=== PATIENT | female | born 1955 | race Caucasian/White ===

== ENCOUNTER 2016-11-04 13:31 | Emergency (ER) | payer MEDICAID ==
[2016-11-04 13:52] VITALS: BP 148/75; PULSE 79; RESP 16; TEMP 98.8; O2SAT 92
[2016-11-04] MEDS ORDERED: IBUPROFEN 800 MG TAB PO ONE (13:54)
[2016-11-04] MEDS ORDERED: AMOXICILLIN/CLAVULANATE POT 875/125 MG TAB PO ONE (13:54)
[2016-11-04] MEDS ORDERED: IBUPROFEN 200 MG TAB PO ONE (14:01)
--- NOTE | 2016-11-04 14:03 | EDPHY ---
H & P Time Seen by Provider: 11/04/16 13:43 HPI/ROS: HPI Sinus pressure. 61-year-old female by private vehicle. She complains of right-sided maxillary sinus pressure and discomfort which she 1st noticed last Friday. She reports that has been progressing over since that time. No facial swelling. No fever. She describes it as radiating up into the lateral aspect of her right upper nasal bridge area as well as her right upper jaw and teeth. She has had sinusitis in the past and previous sinus surgery. This is similar to her previous episodes of sinusitis. Her sinus surgery was years ago. She has not had a fever. She is asking for an antibiotic for treatment. ROS: Constitutional: No fever, no chills. No weakness. Eyes: No discharge. No changes in vision. ENT: No sore throat. No nasal congestion or rhinorrhea. As above. Respiratory: No cough. No shortness of breath. Cardiac: No chest pain, no palpitations. Gastrointestinal: No abdominal pain, no vomiting, no diarrhea. Musculoskeletal: No back pain. No neck pain. No myalgias or arthralgias. Skin: No rashes. Neurological: No headache. No focal weakness or altered sensation. Past medical history: Degenerative disc disease, chronic pain, fibromyalgia, thoracic outlet syndrome, as above. [facility]. Social history: Here by herself. No alcohol. Physical Exam: General Appearance: Alert, no distress. This patient is responding to questions appropriately and in full sentences. This patient appears well- hydrated and well-nourished. Eyes: Pupils equal and round no pallor or injection. No lid edema, erythema or injection. ENT, Mouth: Mucous membranes are moist. The pharyngeal tissues are unremarkable. No edema or swelling. No asymmetry suggestive of abscess. No erythema or exudates. Tenderness on palpation over the right maxillary sinus. No associated soft tissue swelling, erythema or warmth noted. No periorbital edema. Neurological: Motor sensory function is grossly intact. Cranial nerves are normal. Gait is normal. Skin: Warm and dry, no rashes. Musculoskeletal: Neck is supple and nontender. No cervical lymphadenopathy. Extremities are symmetrical. All joints range without pain or impingement. Psychiatric: No agitation. No depression. Database: EKG: Imaging: Procedures: Emergency department course: The patient is on chronic narcotic pain medication. She was given 600 mg of ibuprofen. She is not asking for anything stronger. She was given 875 mg of Augmentin. Plan will be to prescribe Augmentin, 875 mg twice daily for the next 7 days. She is then to follow up with her primary care physician for re- evaluation in 2 days. She does not appear toxic. Her vital signs have been reviewed and are normal. She is afebrile. She feels comfortable going home and I feel she is safe for discharge. Return to emergency department precautions were thoroughly reviewed with her. All of her questions were answered. She was discharged from the emergency department in good condition. Differential Diagnosis: The differential diagnosis on this patient includes but is not limited to maxillary sinusitis. Facial fracture, acute dental infection, retropharyngeal abscess, peritonsillar abscess, subarachnoid hemorrhage unlikely. This represents a partial list of diagnoses considered. These considerations are based on history, physical exam, past history, reassessment and diagnostic testing. Constitutional: Initial Vital Signs Temperature (C) 37.1 C 11/04/16 13:40 Heart Rate 79 11/04/16 13:40 Respiratory Rate 16 11/04/16 13:40 Blood Pressure 148/75 H 11/04/16 13:40 O2 Sat (%) 92 11/04/16 13:40 O2 Delivery Mode Room Air Allergies/Adverse Reactions: meperidine HCl [From Demerol] Allergy (Intermediate, Verified 11/04/16 13:46) rash,hives generic drugs Allergy (Severe, Uncoded 11/04/16 13:46) hives,anxiety Home Medications: Medication Instructions Recorded Bimatoprost 0.03% [LUMIGAN 0.03% 0 drops EACHEYE HS 11/18/11 (RX)] Clonazepam 11/18/11 Hydrocodone/APAP 5/325 [[place] 11/18/11 5/325 (*)] Oxycodone HCl/Acetaminophen 11/18/11 [Oxycodone-Acetaminophen 5-325] Amoxicillin/Clavulanate Pot 875 mg PO BID 8 Days 11/04/16 [Augmentin 875 mg tab] Departure - Departure Disposition: Home, Routine, Self-Care Clinical Impression: Sinusitis Condition: Good Instructions: Sinusitis (ED) Additional Instructions: Read and follow provided instructions. Follow-up with your primary care physician in 2 days for re-evaluation. Take medication as prescribed through entire course of treatment. Ibuprofen dosin mg every 6 hours with meals for the next 3 days only. Return to the emergency department for worsening pain, facial swelling, facial discoloration, fever, worsening headache or other serious concerns. Referrals: [facility],. [Primary Care Provider] - As per Instructions Prescriptions: Amoxicillin/Clavulanate Pot [Augmentin 875 mg tab] 875 mg PO BID 8 Days
== END 2016-11-04 14:06 | disposition home or self-care (01) ==
LOC: CED 13:31
DX: J32.9 Chronic sinusitis, unspecified (principal)

== ENCOUNTER 2016-12-26 12:34 | Emergency (ER) | payer MEDICAID ==
[2016-12-26 13:01] VITALS: PULSE 70; RESP 16; TEMP 98.8; O2SAT 94
--- NOTE | 2016-12-26 13:15 | EDPHY ---
H & P Time Seen by Provider: 12/26/16 12:41 HPI/ROS: HPI Tenderness under right breast. 61-year-old female by private vehicle with her friend. She has a history of a small lump underneath the right breast, right at the medullary fold midline to the breast. She reports that she noticed it about 3 years ago. She reports that it has periodically changed in size over the years sometimes getting smaller sometimes getting larger. She reports that she noticed a blackhead on it about a year ago squeezed it and some purulent like material came out of it. She has seen her primary care physician several times for it. She was put on antibiotic once as treatment. There was no significant change. She was told it was a pimple by her primary care physician. She reports that over the last week it has gotten slightly bigger and a little more uncomfortable. She reports this is nothing unusual though that she has not experienced with in the past. She denies fever. No history of trauma. She has no history of breast cancer. ROS: Constitutional: No fever, no chills. No weakness. Respiratory: No cough. No shortness of breath. Cardiac: No chest pain, no palpitations. Musculoskeletal: No back pain. No neck pain. No myalgias or arthralgias. Skin: No rashes. As above. Neurological: No headache. No focal weakness or altered sensation. Past medical history: Chronic pain, fibromyalgia, osteoarthritis, thoracic outlet syndrome, degenerative disc disease, partial hysterectomy. Social history: Here with her friend. No alcohol. Nonsmoker. Physical Exam: General Appearance: Alert, no distress. This patient is responding to questions appropriately and in full sentences. This patient appears well- hydrated and well-nourished. Eyes: Pupils equal and round no pallor or injection. No lid edema, erythema or injection. Chest wall and right breast examination: Small lump, about the size of a nickel to a quarter, mid clavicular line right at the mamillary fold, has the consistency of a lipoma verses a sebaceous cyst. Mild tenderness on palpation over it. No fluctuance, associated erythema or edema noted. Neurological: Motor sensory function is grossly intact. Cranial nerves are normal. Gait is normal. Skin: Warm and dry, no rashes. Musculoskeletal: Neck is supple and nontender. Extremities are symmetrical. All joints range without pain or impingement. Psychiatric: No agitation. No depression. Database: EKG: Imaging: Procedures: Emergency department course: After my evaluation, I discussed the differential diagnosis. I explained that it is likely a recurring sebaceous cyst or lipoma. I recommended she see a general surgeon who can marsupialize it verses remove it and send a biopsy specimen for pathology report if needed. There is no fluctuance. No abscess requiring incision and drainage. There is no surrounding erythema. I explained to her that antibiotics were not indicated at this time. She is in agreement to follow up with General surgery for re-evaluation. Return to emergency department precautions were discussed. All of her questions were answered. She was discharged in good condition. Differential Diagnosis: The differential diagnosis on this patient includes but is not limited to sebaceous cyst, lipoma. Malignancy, abscess, foreign body unlikely. This represents a partial list of diagnoses considered. These considerations are based on history, physical exam, past history, reassessment and diagnostic testing. Smoking Status: Heavy smoker Constitutional: Initial Vital Signs Temperature (C) 37.1 C 12/26/16 12:58 Heart Rate 70 12/26/16 12:58 Respiratory Rate 16 12/26/16 12:58 Blood Pressure 144/89 H 12/26/16 12:58 O2 Sat (%) 94 12/26/16 12:58 O2 Delivery Mode Room Air Allergies/Adverse Reactions: meperidine HCl [From Demerol] Allergy (Intermediate, Verified 12/26/16 12:56) rash,hives generic drugs Allergy (Severe, Uncoded 12/26/16 12:56) hives,anxiety Home Medications: Medication Instructions Recorded Bimatoprost 0.03% [LUMIGAN 0.03% 0 drops EACHEYE HS 11/18/11 (RX)] Clonazepam 11/18/11 Hydrocodone/APAP 5/325 [[place] 11/18/11 5/325 (*)] Oxycodone HCl/Acetaminophen 11/18/11 [Oxycodone-Acetaminophen 5-325] Departure - Departure Disposition: Home, Routine, Self-Care Clinical Impression: Sebaceous cyst of breast, Possible lipoma Condition: Good Instructions: Cyst (ED) Additional Instructions: Read and follow provided instructions. Ibuprofen dosin mg every 6 hours with meals for the next 3 days only. Take only as needed for pain Follow-up with Dr. Brad Simmons or Dr. Watkins his partner in 2-3 days for re- evaluation and further management. Call their office for appointment time this afternoon. Return to the emergency department for worsening pain, swelling, redness, fever or other serious concerns. Referrals: Wale Watkins MD [Medical Doctor] - As per Instructions Brad Simmons MD [Medical Doctor] - As per Instructions
[2016-12-26 13:31] VITALS: BP 130/70
== END 2016-12-26 13:25 | disposition home or self-care (01) ==
LOC: CED 12:34
DX: N60.81 Other benign mammary dysplasias of right breast (principal); F17.200 Nicotine dependence, unspecified, uncomplicated

== ENCOUNTER 2016-12-31 14:06 | Emergency (ER) | payer MEDICAID ==
[2016-12-31 14:27] VITALS: BP 139/69; PULSE 60; RESP 16; TEMP 98.4; O2SAT 94
--- NOTE | 2016-12-31 15:15 | EDPHY ---
H & P Time Seen by Provider: 12/31/16 14:51 HPI/ROS: This patient returns for recheck of her right breast-pain, swelling and redness at the mammary fold. She was seen here by Dr. Palacios on 12/26 2016 with some discomfort to longstanding lump in the area with no erythema at that time. She has secured an appointment to see Dr. lucero in [place]-general surgeon 1 week from today in consult regarding this but in the interim she developed redness and increasing discomfort along with subjective low-grade fevers. She reports partial relief from analgesics with no other exacerbating factors. ROS: Constitutional: No significant fatigue. HEENT: No complaints Pulmonary: No complaints Cardiovascular: No lightheadedness GI: No nausea or vomiting 7 point ROS is otherwise negative Smoking Status: Heavy smoker Physical Exam: Physical Exam Vital signs are normal. General: No acute distress Eyes: Pupils equal and react to light. Extraocular motions are intact. Lungs: No respiratory distress. Cardiac: Brisk capillary refill is intact throughout. Breast exam performed with her director of product management-female in the room: Patient has an area of erythema and [place] edema, warmth to touch 3 x 2 cm at the mammary fold under the right breast mid clavicular line with no fluctuance at this time. The rest of her breast exam is benign with no nipple discharge or other areas of swelling appreciated. Skin: No rash or pallor. See breast exam above Neuro: Alert and oriented x3 with no sensorimotor deficits. Initial differential diagnosis: Lipoma with overlying cellulitis, deep sebaceous cyst with associated cellulitis, breast CA Constitutional: Initial Vital Signs Temperature (C) 36.9 C 12/31/16 14:23 Heart Rate 60 12/31/16 14:23 Respiratory Rate 16 12/31/16 14:23 Blood Pressure 139/69 H 12/31/16 14:23 O2 Sat (%) 94 12/31/16 14:23 O2 Delivery Mode Room Air Allergies/Adverse Reactions: meperidine HCl [From Demerol] Allergy (Intermediate, Verified 12/31/16 14:27) rash,hives generic drugs Allergy (Severe, Uncoded 12/31/16 14:27) hives,anxiety Home Medications: Medication Instructions Recorded Bimatoprost 0.03% [LUMIGAN 0.03% 0 drops EACHEYE HS 11/18/11 (RX)] Clonazepam 11/18/11 Hydrocodone/APAP 5/325 [[place] 11/18/11 5/325 (*)] Oxycodone HCl/Acetaminophen 11/18/11 [Oxycodone-Acetaminophen 5-325] Cephalexin [Keflex (*)] 500 mg PO QID #40 cap 12/31/16 MDM/Departure - [facility] ED Course/Re-evaluation: Discussion: At this time I do not appreciate any fluctuance to this area and I think she is best served by a course of antibiotics. She will follow up in 1 week with the general surgeon for recheck of the area of swelling. I counseled her regarding this. - Depart Disposition: Home, Routine, Self-Care Clinical Impression: Cellulitis of breast Condition: Good Instructions: Cellulitis (ED) Additional Instructions: Diagnosis: Breast cellulitis Plan: Warm packs 3 times a day or more 20 minutes at a time or so Keflex antibiotic Probiotic or yogurt while on Keflex to prevent diarrhea. Follow-up next Friday with the general surgeon for a recheck. Return for any significant worsening despite the treatment plan Referrals: Silvia Cabral PA [Primary Care Provider] - As per Instructions Wale Watkins MD [Medical Doctor] - As per Instructions
== END 2016-12-31 15:00 | disposition home or self-care (01) ==
LOC: CED 14:06
DX: N61.1 Abscess of the breast and nipple (principal); F17.200 Nicotine dependence, unspecified, uncomplicated

== ENCOUNTER → 2016-12-31 | Outpatient (CLI) | payer MEDICAID | LOC: CIMAGING 10:21 | PROVIDERS: ATTEND Clinical Nurse Specialist | DX: M25.551 Pain in right hip (principal); M54.5 Low back pain | CPT/HCPCS: 72114-PO; 73502-PO ==

== ENCOUNTER → 2017-06-03 | Outpatient (CLI) | payer MEDICAID | LOC: FIMAGING 10:32 | PROVIDERS: ATTEND Physician Assistant | DX: R10.9 Unspecified abdominal pain (principal); K40.90 Unilateral inguinal hernia, without obstruction or gangrene, not specified as recurrent ==

== ENCOUNTER 2017-07-02 05:48 | Day surgery (SDC) | payer MEDICAID ==
[2017-07-02] MEDS ORDERED: LR 1,000 ML IV ONE (06:11)
[2017-07-02] MEDS ORDERED: LIDOCAINE 1% 300 MG/30 ML SDV ONE (06:37)
[2017-07-02] MEDS ORDERED: BUPIVACAINE 0.5% 30 ML SDV ONE (06:38)
[2017-07-02] MEDS ORDERED: MIDAZOLAM 2 MG/2 ML VIAL IVP ONE (07:03)
--- NOTE | 2017-07-02 07:06 | PDANEPAE ---
ANE History of Present Illness r breast mass ANE Past Medical History - Cardiovascular History Hx Hypertension: No Hx Arrhythmias: No Hx Chest Pain: No Hx Coronary Artery / Peripheral Vascular Disease: No Hx CHF / Valvular Disease: No Hx Palpitations: No - Pulmonary History Hx COPD: No Hx Asthma/Reactive Airway Disease: No Hx Recent Upper Respiratory Infection: No Hx Oxygen in Use at Home: No Hx Sleep Apnea: No Sleep Apnea Screening Result - Last Documented: Negative Pulmonary History Comment: WORKING ON DECREASING SMOKING. 15 PLUS YRS. SINUS INFECTION 04/2017 - Neurologic History Hx Cerebrovascular Accident: No Hx Seizures: No Hx Dementia: No - Endocrine History Hx Diabetes: No - Renal History Hx Renal Disorders: No - Liver History Hx Hepatic Disorders: No - Neurological & Psychiatric Hx Hx Neurological and Psychiatric Disorders: Yes Neurological / Psychiatric History Comment: PTSD. PARANOID PERSONALITY. SOMATZATION DISORDER. ANXIETY AND DEPRESSION - Cancer History Hx Cancer: No - Congenital Disorder History Hx Congenital Disorders: No - GI History Hx Gastrointestinal Disorders: Yes Gastrointestinal History Comment: IBS. DIVERTICULOSIS. DYSPESIA. CONSTIPATION RELATED TO NARCOTICS. HIATAL HERNIA. HEARTBURN - Other Health History Other Health History: GLAUCOMA. CERVICAL RADICULOPATHY. TMJ - Chronic Pain History Chronic Pain: Yes (LOWER RT HERNIA) - Surgical History Prior Surgeries: NORMA. HYST. YAJAIRA CATARACT. SINUS. YAJAIRA THORACIC OUTLET. TONSILLECTOMY ANE Review of Systems Review of Systems: - Exercise capacity METS (RN): 4 METS ANE Patient History - Allergies Allergies/Adverse Reactions: meperidine HCl [From Demerol] Allergy (Intermediate, Verified 07/02/17 06:13) rash,hives lubiprostone [From Amitiza] Allergy (Verified 07/02/17 06:13) ANXIOUS/JITTERY SHORT OF BREATH generic drugs Allergy (Severe, Uncoded 07/02/17 06:13) hives,anxiety - Home Medications Home Medications: Bimatoprost 0.03% [LUMIGAN 0.03% (RX)] 0 drops EACHEYE HS 11/18/11 [Last Taken 06/30/17] Clonazepam TID 11/18/11 [Last Taken 07/02/17 04:20] Oxycodone HCl/Acetaminophen [Oxycodone-Acetaminophen 5-325] 5 mg QID 11/18/11 [ Last Taken 07/02/17 04:20] B Guard TID 06/20/17 [Last Taken 07/01/17 19:00] Flonase Nasal [place] [email or web address] 06/20/17 [Last Taken 06/29/17] IBUPROFEN PRN 06/20/17 [Last Taken 06/26/17] [place] 10-325 Tablet TID 06/20/17 [Last Taken 07/01/17 23:00] Refresh Classic Eye Drops PRN 06/20/17 [Last Taken 06/11/17] SYSTANE 0.3-0.4% EYE DROPS PRN 06/20/17 [Last Taken 07/02/17 04:20] Linzess DAILY06 06/26/17 [Last Taken 07/02/17 04:20] - NPO status NPO Since - Liquids (Date): 07/02/17 NPO Since - Liquids (Time): 04:20 NPO Since - Solids (Date): 07/01/17 NPO Since - Solids (Time): 19:00 - Smoking Hx Smoking Status: Heavy smoker ANE Labs/Vital Signs - Vital Signs Blood Pressure: 127/54 Heart Rate: 94 Respiratory Rate: 16 O2 Sat (%): 94 Height: 152.4 cm Weight: 53.07 kg ANE Physical Exam - Airway Neck exam: FROM Mallampati Score: Class 3 Mouth exam: poor dentition - Pulmonary Pulmonary: no respiratory distress - Cardiovascular Cardiovascular: regular rate and rhythym - ASA Status ASA Status: II ANE Anesthesia Plan Anesthesia Plan: GA w LMA
[2017-07-02] MEDS ORDERED: fentaNYL 100 MCG/2 ML INJ ONE (07:13)
[2017-07-02] MEDS ORDERED: PROPOFOL 200 MG/20 ML VIAL ONE ×2 (07:13)
--- NOTE | 2017-07-02 07:13 | PDHPUP ---
History & Physical Update H&P update statement: This history and physical update is based on an assessment of the patient which was completed after admission or registration (within 24 hours), but prior to the surgery/procedure.
[2017-07-02] MEDS ORDERED: LIDOCAINE 2% 5 ML SDV ONE (07:17)
[2017-07-02] MEDS ORDERED: fentaNYL 100 MCG/2 ML INJ IVP PRN (07:41)
[2017-07-02] MEDS ORDERED: NALOXONE HCL 0.4 MG/ML INJ IVP PRN (07:41)
--- NOTE | 2017-07-02 07:49 | POSTANESTH ---
Post Anesthetic Evaluation Cardiovascular Status: Normal, Stable Respiratory Status: Normal, Stable Level of Consciousness/Mental Status: Can Participate in Eval Pain Control: Adequate, Prn Tx Ordered Nausea/Vomiting Control: Adequate, Prn Tx Ordered Complications Possibly Related to Anesthesia: None Noted
[2017-07-02 07:52] VITALS: PULSE 55
[2017-07-02] MEDS ORDERED: HYDROCODONE/APAP 5/325 TAB PO PRN (08:17)
--- NOTE | 2017-07-02 08:21 | POSTOPPROG ---
Post Op Note Date of Operation: 07/02/17 Surgeon: Wale Watkins Anesthesiologist: MANN Anesthesia: IV Sedation Pre-op Diagnosis: sebaceous cyst right breast 1.5 cm Post-op Diagnosis: same Procedure: excision Findings: inclusion cyst Inf/Abcess present in the surg proc area at time of surgery?: No EBL: Minimal Specimen(s): cyst with overlying skin
--- NOTE | 2017-07-02 08:36 | GOP ---
[f rep st] OPERATIVE REPORT DATE OF OPERATION: SURGEON: Wale Watkins MD ANESTHESIOLOGIST: Dr. Morales. PREOPERATIVE DIAGNOSIS: Sebaceous cyst. POSTOPERATIVE DIAGNOSIS: Sebaceous cyst. PROCEDURE PERFORMED: Excisional biopsy. FINDINGS: SPECIMENS: Cyst to permanent pathology. INDICATIONS: This is a 62-year-old patient with a history of sebaceous cyst, right lower breast infr amammary fold. The patient is here for elective excision after drainage in the office several times. DESCRIPTION OF PROCEDURE: The patient was brought in the operating room. After induction of IV fausto tion, her chest was prepped with chlorhexidine and draped sterilely. Time-out procedure was performe d according to institutional standards. The area was anesthetized with 1% lidocaine, 0.5% Marcaine p therese and the mass was excised using elliptical incision on the skin, deepened this with electrocauter y, taking out the subcutaneous fat and indurated tissue. After hemostasis was assured, the area was closed in layers using 3-0 Polysorb and 4-0 Monocryl. A total of 10 cc of local anesthesia used. Sp ecimen size was about 1.5 cm of skin margin with underlying cyst. The patient tolerated the procedur e well. She is taken to recovery room in stable condition. No immediate complications. COMPLICATIONS: There were no complications. /[id number]/MODL
[2017-07-02 09:16] VITALS: BP 140/81; RESP 16; TEMP 98.3; O2SAT 94
== END 2017-07-02 09:25 | disposition home or self-care (01) ==
LOC: FSGY 05:48
PROVIDERS: ATTEND Surgery
PROC: 0HBT0ZX Excision of Right Breast, Open Approach, Diagnostic (ICD-10-PCS; principal; 2017-07-02 07:15)
DX: N60.81 Other benign mammary dysplasias of right breast (principal)
CPT/HCPCS: J2250; J2704; J3010

== ENCOUNTER → 2017-09-04 | Outpatient (CLI) | payer MEDICAID | LOC: FIMAGING 12:39 | PROVIDERS: ATTEND Family Medicine | DX: M79.672 Pain in left foot (principal); M79.671 Pain in right foot; M85.871 Other specified disorders of bone density and structure, right ankle and foot; M85.872 Other specified disorders of bone density and structure, left ankle and foot | CPT/HCPCS: G0472 ==

== ENCOUNTER → 2017-09-13 | Outpatient (CLI) | payer MEDICAID ==
[~2017-09-13] MED LIST: DEXAMETHASONE 4 MG/ML VIAL ONE; KETOROLAC 30 MG/1 ML SDV ONE; LIDOCAINE 2% 5 ML SDV ONE; METOCLOPRAMIDE 10 MG/2 ML VIAL ONE; MIDAZOLAM 2 MG/2 ML VIAL ONE; ONDANSETRON 4 MG/2 ML VIAL ONE; PROPOFOL/EMULSION 500 MG/50 ML BOTTLE IV ONE; RANITIDINE 50 MG/2 ML VIAL ONE; REMIFENTANIL HCL 1 MG VIAL ONE; ROCURONIUM 50 MG/5 ML VIAL ONE; fentaNYL 100 MCG/2 ML INJ ONE
== END ==
LOC: FIMAGING 14:37
PROVIDERS: ATTEND Physician Assistant
DX: R10.9 Unspecified abdominal pain (principal); Z90.49 Acquired absence of other specified parts of digestive tract
CPT/HCPCS: J1100; J1885; J2250; J2405; J2704; J2765; J2780; J3010

== ENCOUNTER 2017-09-15 09:47 | Inpatient (IN) | payer MEDICAID ==
--- NOTE | 2017-09-15 06:42 | PDGENHP ---
History and Physical - Chief Complaint RIH - History of Present Illness Otherwise healthy 62yo female. Hernia diagnosed in May with ultrasound. Endorses vague pain at the area. No obstructive symptoms. Otherwise doing well. History Information - Allergies/Home Medication List Allergies/Adverse Reactions: latex Allergy (Verified 09/08/17 12:26) lubiprostone [From Amitiza] Allergy (Verified 09/08/17 12:26) ANXIOUS/JITTERY SHORT OF BREATH meperidine HCl [From Demerol] Allergy (Verified 09/08/17 12:26) rash,hives- only with certain manufactor's generic drugs Allergy (Uncoded 09/08/17 12:26) hives,anxiety Home Medications: Bimatoprost 0.01% [Lumigan 0.01% (*)] 1 drop EACHEYE HS 09/04/17 [Last Taken Unknown] Fluticasone Nasal [Flonase Nasal [place] (RX)] 1 sprays NASAL DAILY PRN 09/04/17 [ Last Taken Unknown] HYDROcodone/APAP 10/325 [[place] 10/325 (*)] 1 tab PO TID 09/04/17 [Last Taken Unknown] Herbals/Supplements -Info Only 1 ea PO DAILY 09/04/17 [Last Taken Unknown] Ibuprofen [Motrin (*)] 800 mg PO DAILY PRN 09/04/17 [Last Taken Unknown] Linaclotide [Linzess] 72 mcg PO DAILY 09/04/17 [Last Taken Unknown] Propylene Glycol/Peg 400 [Systane Ultra 0.4-0.3% Eye Drp] 1 drop EACHEYE Q3- 4PRN PRN 09/04/17 [Last Taken Unknown] Sodium Cl Nasal [[place] (*)] 1 spray NS DAILY PRN 09/04/17 [Last Taken Unknown] clonazePAM [klonoPIN (*)] 1 mg PO QID PRN 09/04/17 [Last Taken Unknown] oxyCODONE IR [Oxycodone Ir (*)] 5 mg PO QID PRN 09/04/17 [Last Taken Unknown] I have personally reviewed and updated: family history, medical history, social history, surgical history - Surgical History Additional surgical history: jesus, breast surgery, hyst - Family History Positive for: non-pertinent - Social History Smoking Status: Heavy smoker Review of Systems Review of Systems: ROS: 10pt was reviewed & negative except for what was stated in HPI & below Physical Exam Physical Exam: Constitutional: no apparent distress, appears nourished, not in pain Eyes: PERRL, anicteric sclera, EOMI Ears, Nose, Mouth, Throat: moist mucous membranes, hearing normal, ears appear normal, no oral mucosal ulcers Cardiovascular: regular rate and rhythym, no murmur, rub, or gallop, No edema Respiratory: no respiratory distress, no rales or rhonchi, clear to auscultation Gastrointestinal: normoactive bowel sounds, soft, non-tender abdomen, other ( tender R groin with reducible mass ) Genitourinary: no bladder fullness, no bladder tenderness Skin: warm, normal color, no rashes or abrasions, no fluctuance, no induration, No mottled Musculoskeletal: full muscle strength, no muscle tenderness, normal joint ROM, no joint effusions Psychiatric: interacting appropriately, not anxious, not encephalopathic, thought process linear Lymph, Heme, Immunologic: no cervical LAD, no supraclavicular LAD Lab Data & Imaging Review Visualized and Interpreted imaging results: Yes Interpretation: US: reducible, fat containing inguinal hernia on right Assessment & Plan Assessment: [facility] Plan: to OR for robotic repair. RBA discussed.
[~2017-09-15 09:47] MED LIST changes: +BUPIVACAINE/EPI 0.5% 30 ML SDV ONE; -DEXAMETHASONE 4 MG/ML VIAL ONE; -KETOROLAC 30 MG/1 ML SDV ONE; -LIDOCAINE 2% 5 ML SDV ONE; -METOCLOPRAMIDE 10 MG/2 ML VIAL ONE; -MIDAZOLAM 2 MG/2 ML VIAL ONE; -ONDANSETRON 4 MG/2 ML VIAL ONE; -PROPOFOL/EMULSION 500 MG/50 ML BOTTLE IV ONE; -RANITIDINE 50 MG/2 ML VIAL ONE; -REMIFENTANIL HCL 1 MG VIAL ONE; -ROCURONIUM 50 MG/5 ML VIAL ONE; -fentaNYL 100 MCG/2 ML INJ ONE
[2017-09-15] MEDS ORDERED: ceFAZolin 2 GM/SWFI 2 GM/20 ML SYR IVP ONE (10:00)
[2017-09-15] MEDS ORDERED: LR 1,000 ML IV ONE (10:01)
--- NOTE | 2017-09-15 11:41 | PDANEPAE ---
ANE Past Medical History - Cardiovascular History Hx Hypertension: No Hx Arrhythmias: No Hx Chest Pain: No Hx Coronary Artery / Peripheral Vascular Disease: No Hx CHF / Valvular Disease: No Hx Palpitations: No - Pulmonary History Hx COPD: No Hx Asthma/Reactive Airway Disease: No Hx Recent Upper Respiratory Infection: No Hx Oxygen in Use at Home: No Hx Sleep Apnea: No Sleep Apnea Screening Result - Last Documented: Negative Pulmonary History Comment: WORKING ON DECREASING SMOKING. 15 PLUS YRS. SINUS INFECTION 04/2017 - Neurologic History Hx Cerebrovascular Accident: No Hx Seizures: No Hx Dementia: No - Endocrine History Hx Diabetes: No - Renal History Hx Renal Disorders: No - Liver History Hx Hepatic Disorders: No - Neurological & Psychiatric Hx Hx Neurological and Psychiatric Disorders: Yes Neurological / Psychiatric History Comment: PTSD. PARANOID PERSONALITY. SOMATZATION DISORDER. ANXIETY AND DEPRESSION - Cancer History Hx Cancer: No - Congenital Disorder History Hx Congenital Disorders: No - GI History Hx Gastrointestinal Disorders: Yes Gastrointestinal History Comment: IBS. DIVERTICULOSIS. DYSPESIA. CONSTIPATION RELATED TO NARCOTICS. HIATAL HERNIA. HEARTBURN - Other Health History Other Health History: GLAUCOMA. CERVICAL RADICULOPATHY. TMJ - Chronic Pain History Chronic Pain: Yes (LOWER RT HERNIA) - Surgical History Prior Surgeries: NORMA. HYST. YAJAIRA CATARACT. SINUS. YAJAIRA THORACIC OUTLET. TONSILLECTOMY ANE Review of Systems Review of Systems: - Exercise capacity METS (RN): 4 METS ANE Patient History - Allergies Allergies/Adverse Reactions: latex Allergy (Verified 09/08/17 12:26) lubiprostone [From Amitiza] Allergy (Verified 09/08/17 12:26) ANXIOUS/JITTERY SHORT OF BREATH meperidine HCl [From Demerol] Allergy (Verified 09/08/17 12:26) rash,hives- only with certain manufactor's generic drugs Allergy (Uncoded 09/08/17 12:26) hives,anxiety - Home Medications Home Medications: Bimatoprost 0.01% [Lumigan 0.01% (*)] 1 drop EACHEYE HS 09/04/17 [Last Taken ] Fluticasone Nasal [Flonase Nasal [place] (RX)] 1 sprays NASAL DAILY PRN 09/04/17 [ Last Taken 09/12/17] HYDROcodone/APAP 10/325 [[place] 10/325 (*)] 1 tab PO TID 09/04/17 [Last Taken 23:00] Herbals/Supplements -Info Only 1 ea PO DAILY 09/04/17 [Last Taken 09/08/17] Ibuprofen [Motrin (*)] 800 mg PO DAILY PRN 09/04/17 [Last Taken Unknown] Linaclotide [Linzess] 72 mcg PO DAILY 09/04/17 [Last Taken Unknown] Propylene Glycol/Peg 400 [Systane Ultra 0.4-0.3% Eye Drp] 1 drop EACHEYE Q3- 4PRN PRN 09/04/17 [Last Taken 09/14/17] Sodium Cl Nasal [Mchenry [place] (*)] 1 spray NS DAILY PRN 09/04/17 [Last Taken Unknown] clonazePAM [klonoPIN (*)] 1 mg PO QID PRN 09/04/17 [Last Taken 09/15/17 07:00] oxyCODONE IR [Oxycodone Ir (*)] 5 mg PO QID PRN 09/04/17 [Last Taken 09/15/17 07 :00] - NPO status NPO Since - Liquids (Date): 09/15/17 NPO Since - Liquids (Time): 07:00 NPO Since - Solids (Date): 09/14/17 NPO Since - Solids (Time): 23:00 - Smoking Hx Smoking Status: Heavy smoker - Family Anes Hx Family Hx Anesthesia Complications: none ANE Labs/Vital Signs - Vital Signs Blood Pressure: 140/83 Heart Rate: 59 Respiratory Rate: 16 O2 Sat (%): 93 Height: 152.4 cm Weight: 53.07 kg ANE Physical Exam - Airway Neck exam: decreased ROM Mallampati Score: Class 2 Mouth exam: normal dental/mouth exam, dentures - Pulmonary Pulmonary: no respiratory distress, no rales or rhonchi, clear to auscultation - Cardiovascular Cardiovascular: regular rate and rhythym, no murmur, rub, or gallop - ASA Status ASA Status: III ANE Anesthesia Plan Anesthesia Plan: general endotracheal anesthesia
[2017-09-15] MEDS ORDERED: FLUTICASONE NASAL 120 SPRAYS/16 GM MDI EACHNARE PRN (11:49)
[2017-09-15] MEDS ORDERED: SODIUM CL NASAL 45 ML BTL NS PRN (11:49)
[2017-09-15] MEDS ORDERED: IBUPROFEN 800 MG TAB PO PRN (11:49)
[2017-09-15] MEDS ORDERED: PROPYLENE GLYCOL EACHEYE PRN (11:49)
[2017-09-15] MEDS ORDERED: PEG EACHEYE PRN (11:49)
[2017-09-15] MEDS ORDERED: HYDROmorphONE/DILAUDID 2 MG/ML INJ IVP PRN (11:50)
[2017-09-15] MEDS ORDERED: ONDANSETRON 4 MG/2 ML VIAL IVP PRN ×2 (11:50→12:17)
[2017-09-15] MEDS ORDERED: D5W 1/2 NS W/ 20 KCl/L 1,000 ML IV SCH (12:00)
[2017-09-15] MEDS ORDERED: NALOXONE HCL 0.4 MG/ML INJ IVP PRN (12:12)
[2017-09-15] MEDS ORDERED: DEXAMETHASONE 4 MG/ML VIAL IVP PRN (12:17)
[2017-09-15] MEDS ORDERED: ALBUTEROL 3 ML DEYVIAL IH PRN (12:17)
[2017-09-15] MEDS ORDERED: METOCLOPRAMIDE 10 MG/2 ML VIAL IVP PRN (12:17)
[2017-09-15] MEDS ORDERED: DIAZEPAM 5 MG/ML 1 ML SYR IVP PRN (12:17)
[2017-09-15] MEDS ORDERED: fentaNYL 100 MCG/2 ML INJ IVP PRN (12:17)
[2017-09-15] MEDS ORDERED: LR 500 ML IV PRN (12:17)
--- NOTE | 2017-09-15 12:55 | POSTOPPROG ---
Post Op Note Date of Operation: 09/15/17 Surgeon: Mikhail Fairbanks Reprographics Technician: Angelo David MD Anesthesiologist: Chery Anesthesia: GET(General Endotracheal) Pre-op Diagnosis: symptomatic right inguinal hernia Post-op Diagnosis: right femoral hernia Procedure: robotic asssited femoral hernia repair with mesh Findings: small femoral hernia containing fat Inf/Abcess present in the surg proc area at time of surgery?: No Depth: Superfical (Skin SQ) EBL: Minimal
[2017-09-15] MEDS: KETOROLAC 15 MG/1 ML SDV IVP SCH ×3 (13:57→23:01)
[2017-09-15] MEDS ORDERED: oxyCODONE IR 5 MG TAB ONE (14:01)
[2017-09-15] MEDS: oxyCODONE IR 5 MG TAB PO PRN ×2 (14:04→19:59)
[2017-09-15] MEDS ORDERED: fentaNYL 100 MCG/2 ML INJ ONE (14:07)
--- NOTE | 2017-09-15 14:09 | GOP ---
[f rep st] OPERATIVE REPORT DATE OF OPERATION: 09/15/2017 SURGEON: Mikhail Fairbanks MD ENVIRONMENTAL LAW PROFESSOR: Angelo David MD. ANESTHESIA: General endotracheal. ANESTHESIOLOGIST: Dr. Gottlieb. PREOPERATIVE DIAGNOSIS: Right inguinal hernia. POSTOPERATIVE DIAGNOSIS: Right femoral hernia. PROCEDURE PERFORMED: Robotic assisted right femoral hernia repair with mesh. FINDINGS: Small right femoral hernia containing fat, successfully reduced, site repaired with a Bard 3D Light large-size mesh. SPECIMENS: None. ESTIMATED BLOOD LOSS: 5 cc. DESCRIPTION OF PROCEDURE: The patient was greeted in the preoperative suite. Once again, risks, benefits, and alternatives were discussed. Consent was signed. She was then brought back to the operative suite, placed on the OR table in supine position. After all anesthesia machines including SCDs were on and functioning, World Health Organization time-out was performed. After successful induction of general anesthesia, the patient's abdomen was prepped and draped in typical sterile fashion. I entered the abdomen via a supraumbilical cutdown through which a Veress needle was passed. I achieved pneumoperitoneum to 15 mmHg which was well tolerated by the patient. Through this, I inserted an 8 mm port. Once successfully in the abdomen, I inserted 2 additional 8 mm trocars, 1 in the right upper and 1 in the left upper quadrant, both under direct visualization. I grossly inspected all abdominal contents including right and left upper and lower quadrants and found no other significant pathology. The patient was then placed in gentle Trendelenburg position and the robot was successfully docked. I turned my attention toward the right groin, where I made a peritoneal incision just above the anterior superior iliac spine. I carried this medially adjacent past midline. I then made a peritoneal defect and completely dissected this all the way down to the visceral sac. I identified no indirect or direct inguinal hernia. I did, however, identify a fat-containing femoral hernia adjacent and medial to the vessels. This was successfully reduced without issue. I then inspected the remainder of the area. I found no other significant pathology. The mesh was then brought in. It was attached to Leo's ligament with 2 interrupted Vicryl stitches and on either side of the inferior epigastric vessels with the same stitch. The peritoneum was then reapproximated with a running V-Loc stitch, noting excellent reapproximation. Local anesthesia was then infiltrated in all port sites, which were then removed. The robot was undocked. I evacuated my pneumoperitoneum. The skin was then closed with 4-0 Monocryl over which Dermabond was placed. The patient was then extubated in the operative suite and taken to the PACU in satisfactory condition. DRAINS: None. COUNTS: All counts were reported as correct x2. /[id number]/MODL MTDD
[2017-09-15] MEDS: HYDROCODONE/APAP 10/325 TAB PO SCH ×2 (16:17→23:01)
[2017-09-15] MEDS: clonazePAM 1 MG TAB PO PRN (20:00)
[2017-09-15] MEDS: BIMATOPROST 0.01% 2.5 ML OPHT.BTL EACHEYE SCH (21:45)
[2017-09-16] MEDS: clonazePAM 1 MG TAB PO PRN ×4 (02:06→20:05)
[2017-09-16] MEDS: oxyCODONE IR 5 MG TAB PO PRN ×4 (02:06→20:05)
[2017-09-16] MEDS: KETOROLAC 15 MG/1 ML SDV IVP SCH ×4 (05:57→23:14)
[2017-09-16] MEDS: HYDROCODONE/APAP 10/325 TAB PO SCH ×3 (08:27→23:13)
[2017-09-16] MEDS: (Linaclotide [Linzess] 72 MCG) PO SCH (08:29)
[2017-09-16] MEDS ORDERED: LINACLOTIDE 72 MCG PO SCH (09:00)
--- NOTE | 2017-09-16 11:20 | ASMTCASEMG ---
Living Arrangements What is your living Answers: Alone arrangement? Who do you live with? Type Of Residence What kind of residence do Answers: Apartment you live in? Discharge Plan Comments Coordination Status Comments Notes: CM spoke w/ Ese RN regarding d/c POC. Pt is a 62 y/o female admitted for a r inguinal. Pt lives on the third floor and worries about getting to her apartment. Ese will speak to Dr. Fairbanks about putting in a PT order. Needs are TBD at this time. CM to follow. Plan: TBD Date Signed: 09/16/2017 11:19 AM Electronically Signed By:RODRI Aragon
--- NOTE | 2017-09-16 11:32 | SOAPPROG ---
[facility] Progress Note Assessment/Plan: Assessment/Plan: 62yo F POD#1 s/p robotic R femoral hernia repair Admitted overnight for pain control Regular diet Passing flatus Ambulating Dispo: doing well from surgical standpoint but patient is very preoccupied with other medical issues. Will need to f/u with PCP re: other medical problems predating/unrelated to surgery. Likely home later today or tomorrow am if pain controlled. S: complaining of urinary issues, specifically the sensation of incomplete void. No urgency or dysuria. No incontinence of urine. Asking for miralax because she feels backed up. Complaining of right shoulder pain and back pain and the bed is uncomfortable. O: laying in bed, NAD No increased WOB Abd soft, nondistended. Incisions CDI. Nontender to palpation, no suprapubic tenderness. +BS Objective: Vital Signs Temp Pulse Resp BP Pulse Ox 36.8 C 73 16 135/75 H 91 L 09/16/17 10:58 09/16/17 10:58 09/16/17 10:58 09/16/17 10:58 09/16/17 10:58 09/15/17 09/16/17 09/17/17 05:59 05:59 05:59 Intake Total 1545 250 Output Total 2505 750 Balance -960 -500 ICD10 Worksheet Patient Problems: Problems Problem Status Onset Femoral hernia Acute - ICD10 Problem Qualifiers (1) Femoral hernia
[2017-09-16] MEDS: POLYETHYLENE GLYCOL 3350 17 GM PKT PO SCH (13:09)
--- NOTE | 2017-09-16 17:13 | PDMN ---
Medical Necessity Medical necessity: change to IP; los>2mn for uncontrolled pain s/p R femoral hernia repair with mesh, and with inability to manage 3 flights stairs at home r /t weakness; per order 09/16/17
[2017-09-16] MEDS: BIMATOPROST 0.01% 2.5 ML OPHT.BTL EACHEYE SCH (20:06)
[2017-09-17] MEDS: oxyCODONE IR 5 MG TAB PO PRN ×2 (02:06→08:29)
[2017-09-17] MEDS: KETOROLAC 15 MG/1 ML SDV IVP SCH (05:22)
[2017-09-17] MEDS: clonazePAM 1 MG TAB PO PRN (08:28)
[2017-09-17] MEDS: POLYETHYLENE GLYCOL 3350 17 GM PKT PO SCH (08:29)
[2017-09-17] MEDS: (Linaclotide [Linzess] 72 MCG) PO SCH (08:29)
--- NOTE | 2017-09-17 09:56 | SOAPPROG ---
[facility] Progress Note Assessment/Plan: Assessment: POD # 2 s/p robotic femoral hernia repair much better today can dc home S: feeling better O: CTAB RRR Alert and appears well incisions cdi Plan: 09/17/17 09:55 Objective: Vital Signs Temp Pulse Resp BP Pulse Ox 36.9 C 65 16 136/82 H 93 09/17/17 08:00 09/17/17 08:00 09/17/17 08:00 09/17/17 08:00 09/17/17 08:00 09/16/17 09/17/17 09/18/17 05:59 05:59 05:59 Intake Total 1545 750 Output Total 7621 7662 Balance -665 -9220 ICD10 Worksheet Patient Problems: Problems Problem Status Onset Femoral hernia Acute
[2017-09-17] MEDS: HYDROCODONE/APAP 10/325 TAB PO SCH (10:46)
[2017-09-17 11:27] VITALS: BP 143/81
== END 2017-09-17 13:40 | disposition home or self-care (01) | DRG 228 ==
LOC: F3E 09:47 → INTOOBSV 11:50 → OBSVTOIN 11:50 → F3E 15:27
PROVIDERS: ADMIT Surgery; ATTEND Surgery
DX: K41.90 Unilateral femoral hernia, without obstruction or gangrene, not specified as recurrent (principal); F17.210 Nicotine dependence, cigarettes, uncomplicated; F43.10 Post-traumatic stress disorder, unspecified; F45.0 Somatization disorder; F41.8 Other specified anxiety disorders; K58.9 Irritable bowel syndrome, unspecified; Z91.040 Latex allergy status
CPT/HCPCS: 97161-GP; C1781; G0378; G8978-GP-CI; G8979-GP-CI; G8980-GP-CI; J0690; J1885; J2270; J3010

== ENCOUNTER → 2018-03-05 | Outpatient (CLI) | payer MEDICAID ==
[~2018-03-05] MED LIST changes: -BUPIVACAINE/EPI 0.5% 30 ML SDV ONE; +IOPAMIDOL (ISOVUE-300) 100 ML BTL ONE
== END ==
LOC: FIMAGING 13:48
PROVIDERS: ATTEND Surgery
DX: K57.30 Diverticulosis of large intestine without perforation or abscess without bleeding (principal)
CPT/HCPCS: Q9967

== ENCOUNTER → 2018-11-11 | Outpatient (CLI) | payer MEDICAID | LOC: FIMAGING 12:25 ==

== ENCOUNTER → 2018-11-13 | Outpatient (CLI) | payer MEDICAID | LOC: FIMAGING 13:35 ==